=== PATIENT | male | born 1940 | race Caucasian/White ===

== ENCOUNTER 2022-03-09 15:30 | Inpatient (IN) | payer MEDICARE ==
[~2022-03-09] VITALS: Ht 185.4 cm; Wt 62.0 kg
[2022-03-09] VITALS (11 sets, daily range): BP systolic 94–134; BP diastolic 54–78
--- NOTE | 2022-03-09 17:28 | NUR ---
ABG ORDERED BY DR PAGE. RT MADE 1 ATTMPT, IN WHICH THE PATEINT MOVED WHILE TRYING TO OBTAIN THE SAMPLE. PT REFUSED SECOND ATTEMPT AT OBTAINING AN ABG. PATEINT EDUCATED ON IMPORTANCE OF THE LAB, AND PATEINT STILL REFUSED.
--- NOTE | 2022-03-09 18:34 | NUR ---
PT TRANSFERRED TO ICU FROM MED SURG. PT ON 6L NC. DENIES PAIN. PT SHOWING NO SIGNS OF DISTRESS. VITAL SIGNS WITHIN NORMAL LIMITS. AT BEDSIDE. SAFETY PRECAUTIONS ARE IN PLACE. WILL CONTINUE TO MONITOR CLOSELY.
--- NOTE | 2022-03-09 18:40 | NUR ---
PLACED PATIENT ON 6L/HIGH FLOW NASAL CANNULA WITH SPO2 94%-95%.
[2022-03-09 18:55] LABS: HEMOGLOBIN 13.8 g/dl (14.0-18.0); IMMATURE GRANULOCYTES 0.2 % (0.0-5.0); MEAN CELL VOLUME 92.8 fL CALC (80.0-100.0); MEAN CORPUSCULAR HGB 30.9 pG CALC (26.0-32.0); MEAN CORPUSCULAR HGB CONC 33.3 g/dL CAL (32.0-36.0); NEUT# 7.89 thou/uL (1.82-7.42); RED BLOOD COUNT 4.47 mill/uL (4.70-6.10); RED CELL DISTRI WIDTH 13.3 % (11.5-15.5)
--- NOTE | 2022-03-09 19:04 | NUR ---
PT ARRIVED TO UNIT AT [id number]
[2022-03-09 19:05] LABS: ALBUMIN 3.4 g/dL (3.2-5.0); ALKALINE PHOSPHATASE 87 u/l (38-126); ANION GAP 10 (6-22 (CALC)); BUN 8 mg/dL (8-23); BUN/CREATININE RATIO 10 (12-20 (CALC)); CARBON DIOXIDE 27 mmol/l (22-30); CHLORIDE 103 mmol/l (95-108); CREATININE 0.9 mg/dL (0.7-1.3); GFR > 60 ML/MIN (>=60 (CALC)); GFR FOR AFR.AMER. > 60 ML/MIN (>=60 (CALC)); MAGNESIUM 1.7 mg/dL (1.6-2.3); POTASSIUM 4.2 mmol/l (3.5-5.1); SGOT/AST 21 u/l (19-48); SODIUM 135 mmol/l (137-146); TOTAL PROTEIN 7.2 g/dL (6.3-8.2)
[2022-03-09 19:10] LABS: BILIRUBIN, TOTAL 0.5 mg/dL (0.0-1.4)
--- NOTE | 2022-03-09 19:10 | NUR ---
REPORT GIVEN BY Suzette POTTER. PATIENT RESTING IN BED WATCHING TV. RESP EVEN AND UNLABORED, 6L O2 VIA NC. NO S/S OF DISTRESS NOTED. FALL AND SAFTEY PRECAUTIONS IN PLACE. PLAN OF CARE DISCUSSED. PATIENT ORIENT TO ROOM, CALL LIGHT, AND BED. IV INFUSING FLUIDS PER MD ORDERS. PATIENT INFORMED TO CALL WITH ANY QUESTIONS OR CONCERNS.
[2022-03-09 20:02] LABS: HEMATOCRIT 41.5 % (39.0-50.0)
[2022-03-09] MEDS ORDERED: REMERON15 MG PO (20:19)
[2022-03-09] MEDS ORDERED: LEVOTHYROXIN125 MCG PO (20:20)
[2022-03-09] MEDS ORDERED: TRELEGY ELLIPTA1 AER PO (20:20)
[2022-03-09] MEDS ORDERED: ASPIRIN ADULT L81 M2 PO (20:20)
[2022-03-09] MEDS ORDERED: LIPITOR20 M1 PO (20:20)
[2022-03-09] MEDS ORDERED: PROVENTIL0.083 % IN (20:20)
--- NOTE | 2022-03-09 22:03 | NUR ---
PATIENT RESTING IN BED WITH EYES CLOSED. RESP EVEN AND UNLABORED, 2L VIA NC.
--- NOTE | 2022-03-09 23:30 | NUR ---
MIDNIGHT MEDICATIONS GIVEN PER MD ORDERS
[2022-03-09 23:48] LABS: URINE BILIRUBIN - DIPSTICK NEGATIVE (NEGATIVE); URINE BLOOD DIPSTICK NEGATIVE (NEGATIVE); URINE CLARITY CLEAR; URINE COLOR YELLOW; URINE GLUCOSE - DIPSTICK NEGATIVE (NEGATIVE); URINE KETONE NEGATIVE (NEGATIVE); URINE LEUK ESTERASE NEGATIVE (Negative); URINE NITRITE - DIPSTICK NEGATIVE (Negative); URINE PROTEIN - DIPSTICK NEGATIVE (NEG-TRACE); URINE UROBILINOGEN - DIPSTICK 0.2 E.U./dL (0.2)
[2022-03-10] VITALS (22 sets, daily range): BP systolic 98–132; BP diastolic 55–67
--- NOTE | 2022-03-10 02:08 | NUR ---
PATIENT RESTING WITH EYES CLOSED. RESP EVEN AND UNLABORED. NO S/S OF DISTRESS NOTED. FALL AND SAFTEY PRECAUTIONS IN PLACE.
--- NOTE | 2022-03-10 04:02 | NUR ---
PATIENT RESTING WITH EYES CLOSED. RESP EVEN AND UNLABORED. NO S/S OF DISTRESS NOTED
--- NOTE | 2022-03-10 04:50 | NUR ---
STRIPPER AND OPAQUER APPRENTICE AT BEDSIDE DRAWNING MORNING LABS
[2022-03-10 05:23] LABS: HEMATOCRIT 44.8 % (39.0-50.0); HEMOGLOBIN 14.8 g/dl (14.0-18.0); MEAN CELL VOLUME 94.9 fL CALC (80.0-100.0); MEAN CORPUSCULAR HGB 31.4 pG CALC (26.0-32.0); RED BLOOD COUNT 4.72 mill/uL (4.70-6.10); RED CELL DISTRI WIDTH 13.1 % (11.5-15.5)
[2022-03-10 05:38] LABS: ALBUMIN 3.4 g/dL (3.2-5.0); ALKALINE PHOSPHATASE 83 u/l (38-126); ANION GAP 14 (6-22 (CALC)); BILIRUBIN, TOTAL 0.4 mg/dL (0.0-1.4); BUN 10 mg/dL (8-23); BUN/CREATININE RATIO 13 (12-20 (CALC)); CARBON DIOXIDE 26 mmol/l (22-30); CHLORIDE 106 mmol/l (95-108); CREATININE 0.8 mg/dL (0.7-1.3); GFR > 60 ML/MIN (>=60 (CALC)); GFR FOR AFR.AMER. > 60 ML/MIN (>=60 (CALC)); MAGNESIUM 1.9 mg/dL (1.6-2.3); POTASSIUM 4.3 mmol/l (3.5-5.1); SGOT/AST 23 u/l (19-48); SODIUM 141 mmol/l (137-146); TOTAL PROTEIN 7.1 g/dL (6.3-8.2)
--- NOTE | 2022-03-10 07:25 | NUR ---
PT REPORT RECEIVED FROM FLIGHT TEST DATA ACQUISITION TECHNICIAN. PT ALERT/ORIENTED X3, COUGHING WITH NON PRODUCTIVE COUGH, LUNGS ARE WHEEZING AND DIMINISHED IN UPPER LOBES. CHECKED IV SITE AND IV SITE WAS INFILTRATED, REMOVED AND PLACED COBAN AROUND AREA AND PLACED ON PILLOW FOR ELEVATION. DENIES ANY PAIN AT SITE. WILL ATTEMPT IV PLACEMENT AFTER BREAKFAST PER PT REQUEST.
--- NOTE | 2022-03-10 07:38 | NUR ---
PT DOES NOT WANT BREAKFAST AT THIS TIME. REQUESTS TO HAVE IT LATER.
--- NOTE | 2022-03-10 09:17 | NUR ---
AT BEDSIDE, BROUGHT PT HIS BREAKFAST, VITAL SIGNS STABLE, OXYGEN HAS BEEN DECREASED TO 4, STATES IS ON 2 LITRES AT HOME. AND USUALLY RUNS AROUND 92%
--- NOTE | 2022-03-10 12:45 | NUR ---
PT RESTING QUIETLY ON BED, AT BEDSIDE, FEEDING PT APPLESAUCE. WHICH IS ALL PT WANTS
--- NOTE | 2022-03-10 14:32 | NUR ---
PT RESTING QUIETLY ON BED, VITAL SIGNS REMAIN STABLE. AT BEDSIDE FEEDING PT APPLESAUCE AND TEA FROM HOME. PT ALERT/ORIENTED X3.
--- NOTE | 2022-03-10 20:00 | NUR ---
RECIEVED PATIENT RESTING IN BED. T BEDSIDE. HE WAS NON COMPLIANT WITH HIS CARE. REFUSED TO REMOVED HIS T SHIRT FULL OF TOMATO SOUP AND HE REFUSED TO REMOVED HIS JEANS.
--- NOTE | 2022-03-10 23:21 | NUR ---
PATIENT RESTING IN BED. NON PRODUCTIVE COUGH NOTED.
[2022-03-11] VITALS (8 sets, daily range): BP systolic 105–121; BP diastolic 64–76
--- NOTE | 2022-03-11 01:45 | NUR ---
Patient heartrate severe bradycardia at rate of low 50's . notified dr. nunez.awaiting for his response.
--- NOTE | 2022-03-11 02:09 | NUR ---
notified dr. nunez regarding patient low heartrate. no order noted .just keep monitoring him.
--- NOTE | 2022-03-11 07:22 | NUR ---
PT REPORT RECEIVED FROM WOOD CABINETMAKER. PT SITTING UP IN BED WATCHING TV, REQUESTING A FRESH CUP OF COFFEE. VITAL SIGNS REMAIN THE SAME, HEART RATE IN THE UPPER 40'S LOW 50'S
--- NOTE | 2022-03-11 09:02 | NUR ---
PT AT BEDSIDE, PT STOOD UP ON OWN AND WALKED WITH A WALKER ON OWN WITH NO HELP AROUND THE NURSES DESK, ANDD SAT DOWN, AND GOT UP TWICE. SATS REMAIN IN THE ID 80'S
--- NOTE | 2022-03-11 10:16 | NUR ---
PT GOT UP AND WALKED TO BATHROOM WITH WALKER, CHANGED SHIFT. AT BEDSIDE ANDD HAS SIGNED THE DISCHARGE PAPERS. PT WHEELED TO CAR. THANKED US FOR HIS CARE
== END 2022-03-11 10:30 | disposition home or self-care (01) | DRG 193 ==
LOC: MS2 15:30 → ICU 15:30 → MS2 18:30 → ICU 03-11 10:30
PROVIDERS: ADMIT Internal Medicine; ATTEND Internal Medicine
DX: J18.9 Pneumonia, unspecified organism (principal); J96.21 Acute and chronic respiratory failure with hypoxia; J47.1 Bronchiectasis with (acute) exacerbation; I50.22 Chronic systolic (congestive) heart failure; R64 Cachexia; Z68.1 Body mass index [BMI] 19.9 or less, adult; J47.0 Bronchiectasis with acute lower respiratory infection; J43.9 Emphysema, unspecified; I25.10 Atherosclerotic heart disease of native coronary artery without angina pectoris; E03.9 Hypothyroidism, unspecified; E78.5 Hyperlipidemia, unspecified; Z95.5 Presence of coronary angioplasty implant and graft; Z66 Do not resuscitate; Z87.891 Personal history of nicotine dependence; Z20.822 Contact with and (suspected) exposure to COVID-19; J47.9 Bronchiectasis, uncomplicated; R91.8 Other nonspecific abnormal finding of lung field
CPT/HCPCS: J1650

== ENCOUNTER 2022-03-17 22:08 | Inpatient (IN) | payer MEDICARE ==
[~2022-03-17] VITALS: Ht 185.4 cm; Wt 64.0 kg
[~2022-03-17 22:08] MED LIST: ASPIRIN ADULT L81 M2 PO; LEVOTHYROXIN125 MCG PO; LIPITOR20 M1 PO; PROVENTIL0.083 % IN; REMERON15 MG PO; TRELEGY ELLIPTA1 AER PO
--- NOTE | 2022-03-17 22:13 | NUR ---
PT IN ROOM, PT PUSHED IN WHEELCHAIR BY ED STAFF.
[2022-03-17 22:16] VITALS: BP 120/85
[2022-03-17] MEDS ORDERED: PREDNISONE1 MG PO (22:29)
[2022-03-17 22:30] VITALS: BP 135/82
--- NOTE | 2022-03-17 22:35 | NUR ---
IV STARTED. BOTH SONS OUTSIDE ROOM. UPSET WITH CARE.
--- NOTE | 2022-03-17 22:49 | NUR ---
PT AND FAMILY HAVE BECOME CONFRONTATIONAL, WOULD NOT GO TO WAITING ROOM WHEN ASKED, FAMILY MEMBER THEN MADE THREATENING COMMENTS TO ED STAFF AND [employer] WAS CALLED, TAE DURHAM INFORMED, VARIANCE REPORT TO BE FILED.
--- NOTE | 2022-03-17 22:51 | NUR ---
PT FAMILY MAKING THREATENING COMMENTS TO ED STAFF, [employer] CALLED, SPOKE WITH [employer].
[2022-03-17 22:53] LABS: HEMATOCRIT 47.5 % (39.0-50.0); HEMOGLOBIN 15.9 g/dl (14.0-18.0); IMMATURE GRANULOCYTES 0.8 % (0.0-5.0); MEAN CELL VOLUME 92.1 fL CALC (80.0-100.0); MEAN CORPUSCULAR HGB 30.8 pG CALC (26.0-32.0); MEAN CORPUSCULAR HGB CONC 33.5 g/dL CAL (32.0-36.0); NEUT# 17.54 thou/uL (1.82-7.42); RED BLOOD COUNT 5.16 mill/uL (4.70-6.10); RED CELL DISTRI WIDTH 13.1 % (11.5-15.5)
[2022-03-17 23:00] VITALS: BP 110/73
[2022-03-17 23:07] LABS: ALBUMIN 3.3 g/dL (3.2-5.0); ALKALINE PHOSPHATASE 65 u/l (38-126); ANION GAP 11 (6-22 (CALC)); BUN 18 mg/dL (8-23); BUN/CREATININE RATIO 22 (12-20 (CALC)); CARBON DIOXIDE 30 mmol/l (22-30); CHLORIDE 99 mmol/l (95-108); CREATININE 0.8 mg/dL (0.7-1.3); GFR > 60 ML/MIN (>=60 (CALC)); GFR FOR AFR.AMER. > 60 ML/MIN (>=60 (CALC)); LIPASE 96 u/l (23-300); POTASSIUM 3.8 mmol/l (3.5-5.1); SGOT/AST 18 u/l (19-48); SODIUM 136 mmol/l (137-146); TOTAL PROTEIN 6.9 g/dL (6.3-8.2)
[2022-03-17 23:08] LABS: ACT PARTIAL THROMBO TIME 24.7 SECONDS (20.0-32.5); PROTHROMBIN TIME 10.5 SECONDS (9.0-12.5)
[2022-03-17 23:11] LABS: BILIRUBIN, TOTAL 0.6 mg/dL (0.0-1.4)
[2022-03-17 23:15] VITALS: BP 103/70
[2022-03-17 23:30] VITALS: BP 99/66
--- NOTE | 2022-03-17 23:30 | NUR ---
PT IN ROOM ON MONITOR WITH FAMILY MEMBER AT BEDSIDE. WILL CONT TO MONITOR, PT TO BE ADMITTED.
[2022-03-17 23:45] VITALS: BP 96/63
[2022-03-18] VITALS (18 sets, daily range): BP systolic 82–119; BP diastolic 57–74
--- NOTE | 2022-03-18 00:17 | NUR ---
81 yr old white male admitted icu5 per stretcher from er. transferred self to bed. bed weight obtained. pt is rude to staff. refuses to answer name & date of , put a gown on & answer medical history questions. history per er & old record. oriented to room. fall precautions initiated.
--- NOTE | 2022-03-18 00:27 | NUR ---
PT TRANSPORTED TO ICU ON MONITOR AND OXYGEN VIA TRETCHER BY ED STAFF, REPORT GIVEN TO [facility].
--- NOTE | 2022-03-18 02:00 | NUR ---
eyes closed. nad. o2 cont
--- NOTE | 2022-03-18 04:00 | NUR ---
resting quietly. resps even & unlabored. o2 cont.
--- NOTE | 2022-03-18 05:00 | NUR ---
lab here. blood drawn.
[2022-03-18 05:23] LABS: HEMATOCRIT 43.2 % (39.0-50.0); HEMOGLOBIN 14.8 g/dl (14.0-18.0); MEAN CELL VOLUME 91.5 fL CALC (80.0-100.0); MEAN CORPUSCULAR HGB 31.4 pG CALC (26.0-32.0); MEAN CORPUSCULAR HGB CONC 34.3 g/dL CAL (32.0-36.0); RED BLOOD COUNT 4.72 mill/uL (4.70-6.10); RED CELL DISTRI WIDTH 12.9 % (11.5-15.5)
[2022-03-18 05:44] LABS: ANION GAP 10 (6-22 (CALC)); BUN 18 mg/dL (8-23); BUN/CREATININE RATIO 27 (12-20 (CALC)); CARBON DIOXIDE 30 mmol/l (22-30); CHLORIDE 103 mmol/l (95-108); CREATININE 0.7 mg/dL (0.7-1.3); GFR > 60 ML/MIN (>=60 (CALC)); GFR FOR AFR.AMER. > 60 ML/MIN (>=60 (CALC)); MAGNESIUM 2.2 mg/dL (1.6-2.3); POTASSIUM 4.3 mmol/l (3.5-5.1); SODIUM 139 mmol/l (137-146)
--- NOTE | 2022-03-18 05:58 | NUR ---
eyes closed. no resp distress. o2 cont.
--- NOTE | 2022-03-18 07:23 | NUR ---
PT IS AWAKE AND SITTING UP IN BED WATCHING TV. PT HAS REQUESTED WATER AND COFFEE. PT REFUSES TO ANSWER ANY ORIENTATION QUESTIONS. ASSESSMENT WAS COMPLETE. PT HAS SAFTEY PRECAUTIONS IN PLACE, AND HAS CALL LIGHT NEAR HE HAS DEMONSTARTED WELL THAT HE KNOWS WHAT BUTTON TO PUSH IF IN NEED OF ANY ASSISTAMCE. WILL CONTINUE TO MONITOR.
--- NOTE | 2022-03-18 10:09 | NUR ---
PT HAS BEEN GIVEN AN I.S PER DR REQUEST. PT STATED HE DOESN'T NEED THAT. PT HAS BEEN EDUCATED OF THE BENEFITS AN I.S PROVIDES, PT STATES LEAVE IT ON THE TABLE. PT HAS CALL LIGHT NEAR. PT WAS OBSERVED AFTER LEAVING ROOM OF HIM USING THE I.S PT HAS BEEN UPDATED OF PT STATUS AND PENDING TRANSFER.
--- NOTE | 2022-03-18 10:55 | NUR ---
GOT REPORT FROM ICU NURSE. PATIENT ASSESSED, AOX3, PATIENT DENIES ANY SOB OR DISCOMFORT. PATIENT ORIENTATED TO ROOM, CALL LIGHT, AND URINAL. NO QUESTIONS OR CONCERNS AT THIS TIME.
--- NOTE | 2022-03-18 11:10 | NUR ---
PHYS. PLACED TRANSFER ORDERS TO BE SENT TO M/S. REPORT WAS GIVEN TO HERMINIO MIXON. PT HAS BELONGINGS WITH HIM. PT ATTCHMENTS ARE SET UP. PT STABLE.
--- NOTE | 2022-03-18 16:00 | NUR ---
PATIENT IS SLEEING, BREATHING EVENLY, NO SXS OF DISTRESS. URINAL EMPTIED, NO BM AT THIS TIME. CALL LIGHT AND PHONE WITH IN REACH.
[2022-03-19] VITALS (7 sets, daily range): BP systolic 108–118; BP diastolic 52–67
[2022-03-19 05:48] LABS: HEMATOCRIT 39.6 % (39.0-50.0); HEMOGLOBIN 13.5 g/dl (14.0-18.0); MEAN CORPUSCULAR HGB CONC 34.1 g/dL CAL (32.0-36.0); RED BLOOD COUNT 4.35 mill/uL (4.70-6.10)
[2022-03-19 06:03] LABS: ANION GAP 9 (6-22 (CALC)); BUN 20 mg/dL (8-23); BUN/CREATININE RATIO 31 (12-20 (CALC)); CARBON DIOXIDE 31 mmol/l (22-30); CHLORIDE 103 mmol/l (95-108); CREATININE 0.6 mg/dL (0.7-1.3); GFR > 60 ML/MIN (>=60 (CALC)); GFR FOR AFR.AMER. > 60 ML/MIN (>=60 (CALC)); MAGNESIUM 2.4 mg/dL (1.6-2.3); POTASSIUM 4.2 mmol/l (3.5-5.1); SODIUM 139 mmol/l (137-146)
--- NOTE | 2022-03-19 07:00 | NUR ---
RECEIVE REPORT FROM SANDHYA DURHAM
--- NOTE | 2022-03-19 07:47 | NUR ---
Received maribell stating patient had 20+ beats of vtach but now back in sinus radha. Assessed patient who denies any chest pain or discomfort. Placed call to Dr Mackay. No new orders at this time
--- NOTE | 2022-03-19 08:00 | NUR ---
PATIENT ALERT AND ORIENTD X3. NO PAIN , NO RESPIRATORY DISTRESS AT THIS TIME. PATIENT IS EDUCATED ABOUD MEDICATIONS AND NURSING PLAN FOR TODAY. PATIENT REFER UNDERSTAND.
--- NOTE | 2022-03-19 10:41 | NUR ---
Spoke with nurse prior to treatment. Pt resting in bed, alert and responded to questions appropriately. BP110/60, HR 50, 02sats 94%. Attempted ROM ex in bed, pt lifting legs stated he could move just fine, refused ex. Pt refused sitting over edge of bed and walking, stating he would get up and going into BR in an hour or so but was not doing it with therapist. Pt left resting in bed with call tsang and tray in reach.
--- NOTE | 2022-03-19 13:30 | NUR ---
Pt resting in bed, refused treatment. He stated I just got up to BR and went for xray and I am not getting up again.
--- NOTE | 2022-03-19 19:20 | NUR ---
RECEIVED REPORT FROM CARA DURHAM
[2022-03-20 03:32] VITALS: BP 104/60
[2022-03-20 05:28] LABS: HEMATOCRIT 39.3 % (39.0-50.0); HEMOGLOBIN 13.3 g/dl (14.0-18.0); MEAN CELL VOLUME 93.1 fL CALC (80.0-100.0); MEAN CORPUSCULAR HGB 31.5 pG CALC (26.0-32.0); MEAN CORPUSCULAR HGB CONC 33.8 g/dL CAL (32.0-36.0); RED BLOOD COUNT 4.22 mill/uL (4.70-6.10); RED CELL DISTRI WIDTH 13.4 % (11.5-15.5)
[2022-03-20 05:44] LABS: ANION GAP 9 (6-22 (CALC)); BUN 20 mg/dL (8-23); BUN/CREATININE RATIO 27 (12-20 (CALC)); CARBON DIOXIDE 31 mmol/l (22-30); CHLORIDE 103 mmol/l (95-108); CREATININE 0.7 mg/dL (0.7-1.3); GFR > 60 ML/MIN (>=60 (CALC)); GFR FOR AFR.AMER. > 60 ML/MIN (>=60 (CALC)); MAGNESIUM 2.4 mg/dL (1.6-2.3); POTASSIUM 4.3 mmol/l (3.5-5.1); SODIUM 139 mmol/l (137-146)
[2022-03-20 06:55] VITALS: BP 124/67
[2022-03-20 06:56] VITALS: BP 124/67
--- NOTE | 2022-03-20 08:00 | NUR ---
PATIENT AWAKE, ALERT, NO SIGNS OR SYMPTOMS OF DISTRESS NOTED OR VOICED. WANTS TO GO HOME TODAY TO ATTEND GRANDDAUGHTERS W[place]ING.
[2022-03-20 10:25] VITALS: BP 111/63
[2022-03-20] MEDS ORDERED: DOXYCYCLINE100 MG PO (11:23)
[2022-03-20] MEDS ORDERED: PREDNISONE10 MG PO (11:29)
== END 2022-03-20 11:46 | disposition home or self-care (01) | DRG 193 ==
LOC: ED 22:08 → ED-I 22:37 → ED 22:37 → ED-I 23:18 → ED 23:32 → ICU 23:33 → MS2 03-18 07:08 → ICU 03-18 07:08 → MS2 03-18 09:40
PROVIDERS: ADMIT Hospitalist; ATTEND Hospitalist
DX: J18.9 Pneumonia, unspecified organism (principal); J96.21 Acute and chronic respiratory failure with hypoxia; J47.0 Bronchiectasis with acute lower respiratory infection; J47.1 Bronchiectasis with (acute) exacerbation; I25.10 Atherosclerotic heart disease of native coronary artery without angina pectoris; E78.5 Hyperlipidemia, unspecified; I50.9 Heart failure, unspecified; E03.9 Hypothyroidism, unspecified; T38.0X5A Adverse effect of glucocorticoids and synthetic analogues, initial encounter; D72.829 Elevated white blood cell count, unspecified; Z99.81 Dependence on supplemental oxygen; Z87.891 Personal history of nicotine dependence; Z95.5 Presence of coronary angioplasty implant and graft; Z20.822 Contact with and (suspected) exposure to COVID-19; R19.7 Diarrhea, unspecified; B37.9 Candidiasis, unspecified
CPT/HCPCS: J0692; J1650

== ENCOUNTER 2023-07-04 12:16 | Emergency (ER) | payer MEDICARE ==
[~2023-07-04] VITALS: Ht 182.9 cm; Wt 60.6 kg
[2023-07-04] VITALS (19 sets, daily range): BP systolic 113–162; BP diastolic 61–103
[~2023-07-04 12:16] MED LIST changes: +ASPIRIN 81 LOW81 MG; +DOXYCYCLINE100 MG PO; +LEVOFLOXACIN750 MG PO; +MIRTAZAPINE15 M1 PO; +PREDNISONE1 MG PO; +PREDNISONE10 MG PO; +PREDNISONE20 MG PO
[2023-07-04 13:27] LABS: BASO% 0.3 % (0-3); EOS% 2.1 % (0-8); HEMATOCRIT 46.9 % (39.0-50.0); HEMOGLOBIN 15.7 g/dl (14.0-18.0); IMMATURE GRANULOCYTES 0.3 % (0.0-5.0); LYMPH% 26.1 % (15-41); MEAN CELL VOLUME 92.3 fL CALC (80.0-100.0); MEAN CORPUSCULAR HGB 30.9 pG CALC (26.0-32.0); MEAN CORPUSCULAR HGB CONC 33.5 g/dL CAL (32.0-36.0); MONO% 6.3 % (2-13); NEUT# 12.99 thou/uL (1.82-7.42); NEUT% 64.9 % (42-76); RED BLOOD COUNT 5.08 mill/uL (4.70-6.10); RED CELL DISTRI WIDTH 12.9 % (11.5-15.5)
[2023-07-04 14:02] LABS: ALBUMIN 3.9 g/dL (3.2-5.0); ALKALINE PHOSPHATASE 90 u/l (38-126); BUN 16 mg/dL (8-23); BUN/CREATININE RATIO 18 (12-20 (CALC)); CARBON DIOXIDE 24 mmol/l (22-30); CHLORIDE 103 mmol/l (95-108); CREATININE 0.9 mg/dL (0.7-1.3); GFR FOR AFR.AMER. > 60 ML/MIN (>=60 (CALC)); GFR OTHER RACES > 60 ML/MIN (>=60 (CALC)); LIPASE 116 u/l (23-300); SGOT/AST 27 u/l (19-48); SODIUM 140 mmol/l (137-146)
[2023-07-04 14:15] LABS: ANION GAP 17 (6-22 (CALC)); BILIRUBIN, TOTAL 0.8 mg/dL (0.2-1.3); POTASSIUM 3.5 mmol/l (3.5-5.1)
[2023-07-04 17:14] LABS: URINE BILIRUBIN - DIPSTICK Negative (NEGATIVE); URINE BLOOD DIPSTICK Negative (NEGATIVE); URINE GLUCOSE - DIPSTICK Negative (NEGATIVE); URINE KETONE Negative (NEGATIVE); URINE LEUK ESTERASE Negative (NEGATIVE); URINE NITRITE - DIPSTICK Negative (Negative); URINE PH 5.5 (4.5-8.0); URINE PROTEIN - DIPSTICK Negative (NEG-TRACE); URINE UROBILINOGEN - DIPSTICK 0.2 E.U./dL (0.2)
[2023-07-04 17:15] LABS: URINE COLOR Yellow
== END 2023-07-04 21:15 | disposition short-term general hospital (02) ==
LOC: ED 12:16
PROVIDERS: Nurse Practitioner
DX: K40.30 Unilateral inguinal hernia, with obstruction, without gangrene, not specified as recurrent (principal); J18.9 Pneumonia, unspecified organism; J44.0 Chronic obstructive pulmonary disease with (acute) lower respiratory infection; K92.2 Gastrointestinal hemorrhage, unspecified; I25.10 Atherosclerotic heart disease of native coronary artery without angina pectoris; J96.10 Chronic respiratory failure, unspecified whether with hypoxia or hypercapnia; E78.5 Hyperlipidemia, unspecified; E03.9 Hypothyroidism, unspecified; I50.9 Heart failure, unspecified; F17.200 Nicotine dependence, unspecified, uncomplicated; Z99.81 Dependence on supplemental oxygen
CPT/HCPCS: J2354; Q9967; S0164

== ENCOUNTER 2023-12-05 06:57 | Observation (INO) | payer MEDICARE ==
[2023-12-05] VITALS (18 sets, daily range): BP systolic 87–145; BP diastolic 46–85
[~2023-12-05] VITALS: Ht 182.9 cm; Wt 59.2 kg
--- NOTE | 2023-12-05 07:00 | NUR ---
PT TO ROOM VIA EMS
[2023-12-05 07:53] LABS: BASO% 0.2 % (0-3); EOS% 2.3 % (0-8); HEMATOCRIT 39.7 % (39.0-50.0); HEMOGLOBIN 13.1 g/dl (14.0-18.0); IMMATURE GRANULOCYTES 0.3 % (0.0-5.0); LYMPH% 13.6 % (15-41); MEAN CELL VOLUME 93.9 fL CALC (80.0-100.0); MONO% 12.2 % (2-13); NEUT# 7.44 thou/uL (1.82-7.42); NEUT% 71.4 % (42-76); RED BLOOD COUNT 4.23 mill/uL (4.70-6.10); RED CELL DISTRI WIDTH 13.1 % (11.5-15.5)
--- NOTE | 2023-12-05 08:00 | NUR ---
pt medicated by marianne hayward.
[2023-12-05 08:03] LABS: URINE BILIRUBIN - DIPSTICK Negative (NEGATIVE); URINE BLOOD DIPSTICK Negative (NEGATIVE); URINE GLUCOSE - DIPSTICK Negative (NEGATIVE); URINE KETONE Negative (NEGATIVE); URINE LEUK ESTERASE Negative (NEGATIVE); URINE NITRITE - DIPSTICK Negative (Negative); URINE PH 6.5 (4.5-8.0); URINE PROTEIN - DIPSTICK Negative (NEG-TRACE); URINE SPECIFIC GRAVITY 1.025; URINE UROBILINOGEN - DIPSTICK 0.2 E.U./dL (0.2)
[2023-12-05 08:08] LABS: URINE COLOR Yellow
[2023-12-05 08:11] LABS: ALBUMIN 3.4 g/dL (3.2-5.0); ALKALINE PHOSPHATASE 50 u/l (38-126); ANION GAP 7 (6-22 (CALC)); BILIRUBIN, TOTAL 0.5 mg/dL (0.2-1.3); BUN 12 mg/dL (8-23); BUN/CREATININE RATIO 14 (12-20 (CALC)); CARBON DIOXIDE 32 mmol/l (22-30); CHLORIDE 105 mmol/l (95-108); CREATININE 0.8 mg/dL (0.7-1.3); GFR FOR AFR.AMER. > 60 ML/MIN (>=60 (CALC)); GFR OTHER RACES > 60 ML/MIN (>=60 (CALC)); POTASSIUM 4.1 mmol/l (3.5-5.1); SGOT/AST 18 u/l (19-48); SODIUM 140 mmol/l (137-146); TOTAL PROTEIN 6.5 g/dL (6.3-8.2)
--- NOTE | 2023-12-05 09:00 | NUR ---
pt in room, appears to be resting comfortably,
[2023-12-05] MEDS ORDERED: ATORVASTATIN CA10 MG PO (09:18)
[2023-12-05] MEDS ORDERED: TAMSULOSIN HCL0.4 MG PO (09:19)
[2023-12-05] MEDS ORDERED: PREDNISONE10 MG PO (09:19)
[2023-12-05] MEDS ORDERED: ZPAK PO (09:20)
[2023-12-05] MEDS ORDERED: ELIQUIS5 MG PO (09:20)
[2023-12-05] MEDS ORDERED: DILTIAZEM HCL120 M1 PO (09:20)
--- NOTE | 2023-12-05 10:15 | NUR ---
pt awaiting admission be, pt appears to be resting comfortably
--- NOTE | 2023-12-05 11:49 | NUR ---
[facility]
[2023-12-05] MEDS ORDERED: TRELEGY ELLIPTA1 AER PO (12:19)
--- NOTE | 2023-12-05 12:23 | NUR ---
pt transported to [facility] with [facility]
--- NOTE | 2023-12-05 12:25 | NUR ---
PT ARRIVED ON FLOOR BY MARY JO DURHAM FROM EMERGENCY ROOM BY RADHA. PT WAS WEIGHED ON STANDING SCALE BY . PT'S WEIGHT WAS 59.2 KG. PT ON 4 LITERS OF OXYGEN AND CURRENTLY USES THAT MUCH AT HOME.
--- NOTE | 2023-12-05 12:44 | NUR ---
REPORT RECEIVED FROM GINETTE IN ED, PT ARRIVED ON UNIT @ 1219 TRANSPORTEC VIA STRETCHER BY ED STAFF. ALERT AND ORIENTED X 3, FLAT EFFECT AT THIS TIME AND REFUSES TO ANSWER ORIENTATION QUESTIONS STATING,"GO ASK SOMEBODY ELSE" WHEN ASKED WHETHER HE KNEW WHAT DAY/MONTH/YEAR IT IS, HE ALSO RESPONDED, "YOU SHOULD KNOW". O2 @ 3.5L VIA NC IN PLACE, TELE MONITOR IN PLACE, ORIENTED TO ROOM AND CALL AVILA, DENIES PAIN/DOSCPMFPRT AT THIS TIME, CALL AVILA IN REACH, MEAL SERVED, WILL CONTINUE TO MONITOR.
[2023-12-05] MEDS ORDERED: ALBUTEROL SUL1.25 MG NEB (13:18)
--- NOTE | 2023-12-05 13:23 | NUR ---
PT IS VERY RAJINDER AND UNCOOPERATIVE, REFUSES TO HAVE FALL RISK AND ALLERGY PLACE STATING, "I DON'T NEED ALL THAT CRAP" BED ALARM ACTIVATED AT THIS TIME.
--- NOTE | 2023-12-05 20:00 | NUR ---
PATIENT RESTING IN BED AT THIS TIME WITH EYES CLOSED AND O2 VIA NASAL CANNULA IN PLACE AT 4LPM. RESPS ARE EVEN AND UNLABORED AT THIS TIME. O2 SATS ARE 96% AT THIS TIME. IVF NS PATENT AND INFUSING VIA LAC ORDERED AT 100CC/HR. TELE MONITOR IN PLACE WITH LAST READING SR-67. CALL LIGHT IN REACH. WILL CONT TO MONITOR.
[2023-12-06] VITALS (10 sets, daily range): BP systolic 100–116; BP diastolic 53–65
--- NOTE | 2023-12-06 | NUR ---
PATIENT RESTING IN BED AT THIS TIME WITH EYES CLOSED. RESPS ARE EVEN AND UNLABORED. O2 VIA NASAL CANNULA IN PLACE WITH O2 SAT OF 96%. TELE MONITOR IN PLACE WITH LAST READING SB-52. IVF NS PATENT AND INFUSING VIA LAC SITE AT 100CC/HR. PATIENT DID REFUSE HIS LAST NEB TREATMENT PER RT. CALL LIGHT IN REACH. WILL CONT TO MONITOR.
--- NOTE | 2023-12-06 05:14 | NUR ---
PATIENT RESTING IN BED AT THIS TIME WITH O2 VIA NASAL CANNULA IN PLACE. IVF NS PATENT AND INFUSING VIA LAC SITE AT 100CC/HR. CALL TELE MONITOR IN PLACE. CALL LIGHT IN REACH. WILL CONT TO MONITOR.
[2023-12-06 06:23] LABS: HEMATOCRIT 35.4 % (39.0-50.0); HEMOGLOBIN 11.9 g/dl (14.0-18.0); IMMATURE GRANULOCYTES 0.3 % (0.0-5.0); LYMPH% 8.7 % (15-41); MEAN CELL VOLUME 92.9 fL CALC (80.0-100.0); MEAN CORPUSCULAR HGB 31.2 pG CALC (26.0-32.0); MEAN CORPUSCULAR HGB CONC 33.6 g/dL CAL (32.0-36.0); MONO% 4.6 % (2-13); NEUT# 6.13 thou/uL (1.82-7.42); NEUT% 86.4 % (42-76); RED BLOOD COUNT 3.81 mill/uL (4.70-6.10)
[2023-12-06 07:01] LABS: ANION GAP 10 (6-22 (CALC)); BUN 16 mg/dL (8-23); BUN/CREATININE RATIO 25 (12-20 (CALC)); CARBON DIOXIDE 26 mmol/l (22-30); CHLORIDE 107 mmol/l (95-108); CREATININE 0.6 mg/dL (0.7-1.3); GFR FOR AFR.AMER. > 60 ML/MIN (>=60 (CALC)); GFR OTHER RACES > 60 ML/MIN (>=60 (CALC)); POTASSIUM 4.5 mmol/l (3.5-5.1); SODIUM 139 mmol/l (137-146)
--- NOTE | 2023-12-06 07:29 | NUR ---
PT RESTING IN LOW FOWLERS POSITION. A/OX3 PT HEART MONITOR NOTED. RESPIRATIONS ON 4LNC HOME DEPENDENT. IV SITE NOTED. PT DENIES ADDITIONAL NEEDS AT THE TIME ALL SAFETY PRECAUTIONS IN PLACE WITH CALL LIGHT IN REACH.
--- NOTE | 2023-12-06 07:53 | NUR ---
PT ASKED TO VERIFY PT NAME AND . PT STATED TO JUST SCAN BRACE[place]. ASKED PT TO VERIFY NAME PER VERIFICATION OF RIGHT PERSON FOR RIGHT MEDICATION. PT STATED WILL NOT GIVE NAME. EDUCATED PT ON THE NEED OF VERIFICATION OF PT SAFETY . PT ARGUED NO ONE ELSE HAD ASKED PT TO VERIFY NAME AND . PT CALLED NURSE " DUMBASS" .STATED TO PT WILL NOT TOLERATE ANY DISRESPECT TOWARDS ANY STAFF. PT ASKED TO VERIFY FULL NAME, PT STATED FIRST NAME . PT ASKED FOR LAST NAME . PT STATED DID NOT HAVE LAST NAME. PT YELLED FULL NAME . PT ASKED TO VERIFY . PT STATED WITH YEAR OF 1938 NOT STATED ON PROFILE. PT STATED WE HAD HIS YEAR WRONG. VERIFIED WITH FOR PT ID ON FILE. RN TALKED TO PT AND STATED HIS YEAR CORRECT ON FILE.
--- NOTE | 2023-12-06 12:00 | NUR ---
PT HOME MED NOW IN EMAR. PT AWARE .
--- NOTE | 2023-12-06 14:57 | NUR ---
PT STATED IF HE WAS ABLE TO DRINK WINE WITH MEDICATION . EDUCATED PT NO ALCOHOL SHOULD BE ALLOWED WITH MEDICATIONS. PT STATED "ITS SWEET TEA DUMBASS". EDUCATED PT INAPPROPRIATE DISRESPECT STAFF AND SHOULD STOP BEING RUDE. PT STATED IT IS BETWEEN NURSE AND PT. EDUCATED PT NOT OKAY. PT QUESTIONED NURSE ON INFORMATION OF PARENTS. NURSE STATED WILL NOT GIVE PERSONAL INFORMATION NOT APPROPRIATE. PT STATED DID NOT CARE AND NURSE SHOULD BE DOING THE SAME THING THEM INSTEAD. NURSE ASKED PT WHAT HE WAS TALKING ABOUT . PT STATED PICKING ORANGES. PT EDUCATED THAT WAS NOT OKAY . INNAPROPRIATE.AND RACIST TO PERSON. PT STATED HE WAS NOT BEING RACIST . HERMINIO DUTTON INFORMED.
--- NOTE | 2023-12-06 16:27 | NUR ---
PT AWARE NOT TO BE MAKING INNAPPROPRIATE COMMENTS .ALL SAFETY PRECAUTIONS IN PLACE WITH CALL LIGHT IN REACH.
--- NOTE | 2023-12-06 20:00 | NUR ---
PATIENT RESTING IN BED AT THIS TIME WITH EYES CLOSED BUT OPEN SPONTANEOUSLY WHEN SPOKEN TO. ALERT AND ORIENTEDX3. O2 VIA NASAL CANNULA IN PLACE VIA NASAL CANNULA AT 4LPM WITH O2 SAT OF 96%. PATIENT CONT TO YESENIA GLEASON THROUGHOUT. PATIENT DOES HAVE PRODUCTIVE COUGH-RECEIVING MUCINEX ORDERED. IVF NS PATENT AND INFUSING VIA LAC SITE AT 100CC/HR. TELE MONITOR IN PLACE WITH LAST READING SR-65 WITH PVC'S. VOIDING YELLOW URINE IN URINAL AT BEDSIDE. SAFETY PRECAUTIONS REINFORCED. CALL LIGHT IN REACH. WILL CONT TO MONITOR.
--- NOTE | 2023-12-06 22:41 | NUR ---
RESTING IN BED WITH EYES CLOSED AND O2 VIA NASAL CANNULA AT 4LPM IN PLACE. CONT TO HAVE O2 SAT OF 96%. ALREADY HAS HOME O2. TELE MONITOR IN PLACE. IVF NS PATENT AND INFUSING VIA LAC INTACT AND INFUSING AT 100CC/HR. CALL LIGHT IN REACH. WILL CONT TO MONITOR.
--- NOTE | 2023-12-07 02:00 | NUR ---
PATIENT RESTING IN BED AT THIS TIME WITH O2 VIA NASAL CANNULA IN PLACE AT4LPM. EYES ARE CLOSED AND RESPS ARE EVEN AND UNLABORED. IVF NS PATENT AND INFUSING VIA LAC SITE AT 100CC/HR. TELE MONITOR IN PLACE-RECEIVED CALL FROM ER THAT PATIENT IS DROPPING ON TELE TO SB-LOW 40'S. CALL LIGHT IN REACH. WILL CONT TO MONITOR.
[2023-12-07 04:01] VITALS: BP 114/61
--- NOTE | 2023-12-07 05:14 | NUR ---
PATIENT RESTING IN BED AT THIS TIME WITH EYES CLOSED AND RESPS ARE EVEN AND UNLABORED. O2 VIA NASAL CANNULA IN PLACE AT 4LPM. TELE MONITOR IN PLACE. IVF PATENT AND INFUSING VIA LAC SITE AT 100CC/HR. CALL LIGHT IN REACH. WILL CONT TO MONITOR.
[2023-12-07 06:11] LABS: HEMATOCRIT 34.6 % (39.0-50.0); IMMATURE GRANULOCYTES 0.3 % (0.0-5.0); LYMPH% 6.6 % (15-41); MEAN CELL VOLUME 93.5 fL CALC (80.0-100.0); MEAN CORPUSCULAR HGB 32.4 pG CALC (26.0-32.0); MEAN CORPUSCULAR HGB CONC 34.7 g/dL CAL (32.0-36.0); MONO% 5.8 % (2-13); NEUT# 9.47 thou/uL (1.82-7.42); NEUT% 87.3 % (42-76); RED BLOOD COUNT 3.7 mill/uL (4.70-6.10)
[2023-12-07 06:41] LABS: ANION GAP 9 (6-22 (CALC)); BUN 16 mg/dL (8-23); BUN/CREATININE RATIO 27 (12-20 (CALC)); CARBON DIOXIDE 30 mmol/l (22-30); CHLORIDE 107 mmol/l (95-108); CREATININE 0.6 mg/dL (0.7-1.3); GFR FOR AFR.AMER. > 60 ML/MIN (>=60 (CALC)); GFR OTHER RACES > 60 ML/MIN (>=60 (CALC)); MAGNESIUM 2.1 mg/dL (1.6-2.3); POTASSIUM 4.4 mmol/l (3.5-5.1); SODIUM 141 mmol/l (137-146)
[2023-12-07 07:00] VITALS: BP 117/62
--- NOTE | 2023-12-07 07:38 | NUR ---
SHIFT CHANGE REPORT, PT SLEEPING IN SUPINE POSITION AND SNORING BUT AROUSES TO VERBAL STIMULI, ORIENTED, IVF INFUSING, TELE MONITOR IN PLACE, CALL AVILA IN REACH AND BED LOCKED IN LOWEST POSITION.
--- NOTE | 2023-12-07 08:29 | NUR ---
CALL FROM MICRO ABOUT G+ COCCI IN 1/4 BLOOD CULTURE [address]TLES[address] INFORMED DR. WINTERS @0800. INSTRUCTED TO WAIT UNTIL FINAL CULTURE RESULT.
[2023-12-07 09:03] VITALS: BP 107/55
[2023-12-07] MEDS ORDERED: OMNICEF300 MG PO (09:43)
[2023-12-07] MEDS ORDERED: PREDNISONE10 MG PO (09:44)
[2023-12-07 10:36] VITALS: BP 121/57
--- NOTE | 2023-12-07 14:13 | NUR ---
Discharge instructions given. Patient verbalizes understanding of same. Discharged in stable condition via Wheelchair to Home with spouse. All belongings sent with pt.
== END 2023-12-07 14:06 | disposition home or self-care (01) ==
LOC: ED 06:57 → ED-I 07:24 → ED 07:24 → ED-I 08:43 → ED 09:03 → MS2 09:04
PROVIDERS: Family Medicine; ADMIT Student in an Organized Health Care Education/Training Program; ATTEND Student in an Organized Health Care Education/Training Program
DX: J44.1 Chronic obstructive pulmonary disease with (acute) exacerbation (principal); J96.11 Chronic respiratory failure with hypoxia; J47.1 Bronchiectasis with (acute) exacerbation; I50.9 Heart failure, unspecified; I48.91 Unspecified atrial fibrillation; I25.10 Atherosclerotic heart disease of native coronary artery without angina pectoris; E78.5 Hyperlipidemia, unspecified; E03.9 Hypothyroidism, unspecified; Z99.81 Dependence on supplemental oxygen; Z95.5 Presence of coronary angioplasty implant and graft; Z87.891 Personal history of nicotine dependence; Z20.822 Contact with and (suspected) exposure to COVID-19